=== PATIENT | female | born 1985 | race American Indian/Alaskan Native ===

== ENCOUNTER 2016-12-28 14:06 | Emergency (ER) | payer OTHER ==
[~2016-12-28] VITALS: Ht 165.1 cm; Wt 52.2 kg
[~2016-12-28 14:06] MED LIST: ACID CONTROL20 MG PO; ACYCLOVIR 200200 MG PO; ALEVE220 MG PO; AMOXICILLIN 50500 M1 PO; APAP/CODEINE ELI5 M1 OR; ATIVAN0.5 MG PO; ATIVAN1 MG PO; AUGMENTIN 875875 MG PO; BACTRIM DS TAB1 EACH PO; CELEXA20 MG PO; CREON 10 CAPSUL1 CA1 PO; FEVERALL650 MG RC; FLOXIN OTI0.3 %/5 M1 OT; HYDROCODONE-AP1 EAC6 PO; IBUPROFEN 400400 M1 PO; IBUPROFEN 600600 M1 PO; IRON325 PO; KEFLEX500 MG PO; KEPPRA 500 MG500 M1 PO; MAGNESIUM OXID400 MG PO; MAGOX 400400 MG PO; NOHOMEMEDICATIONS; NORCO 5-325 TA1 EACH PO; ONDANSETRON HCL4 M2 PO; PEPCID20 MG PO; PERCOCET 5-3251 EACH PO; POTASSIUM20 PO; PROZAC20 MG PO; SEROQUEL 12.512.5 MG PO; TOPROL XL25 MG PO; TRAMADOL 50 MG50 MG PO; TRINATE TABLET1 TAB PO; TYLENOL325 MG PO; VISTARIL 25 MG25 M1 PO; VITAMIN B-1100 M1 PO
[2016-12-28] MEDS ORDERED: MOBIC15 MG PO (15:56)
[2016-12-28] MEDS ORDERED: CORTISPORIN OTI10 ML OTIC (15:56)
== END 2016-12-28 16:28 | disposition home or self-care (01) ==
LOC: ER 14:06
DX: H66.92 Otitis media, unspecified, left ear (principal); F10.10 Alcohol abuse, uncomplicated

== ENCOUNTER 2017-11-11 16:39 | Emergency (ER) | payer OTHER ==
[~2017-11-11] VITALS: Ht 165.1 cm; Wt 49.9 kg
[~2017-11-11 16:39] MED LIST changes: +CORTISPORIN OTI10 ML OTIC; +MOBIC15 MG PO
[2017-11-11] MEDS ORDERED: IBUPROFEN 600600 M1 PO (18:48)
[2017-11-11] MEDS ORDERED: NORCO 5-325 TA1 EACH PO (18:48)
[2017-11-11 18:59] VITALS: BP 121/81
== END 2017-11-11 19:00 | disposition home or self-care (01) ==
LOC: ER 16:39
DX: S52.512A Displaced fracture of left radial styloid process, initial encounter for closed fracture (principal); X58.XXXA Exposure to other specified factors, initial encounter; Y93.89 Activity, other specified; Y92.89 Other specified places as the place of occurrence of the external cause; Y99.8 Other external cause status

== ENCOUNTER 2019-01-30 05:29 | Emergency (ER) | payer OTHER ==
[~2019-01-30] VITALS: Ht 160 cm; Wt 54.4 kg
[2019-01-30 05:50] LABS: URINE BILIRUBIN NEGATIVE (Negative); URINE BLOOD 1+ (Negative); URINE CLARITY CLEAR; URINE COLOR YELLOW; URINE GLUCOSE-RANDOM* NEGATIVE (Negative); URINE KETONES 1+ (Negative); URINE NITRITE-REFLEX NEGATIVE (Negative); URINE PROTEIN (DIPSTICK) 1+ (Negative)
[2019-01-30 05:53] LABS: URINE LEUKOCYTES-REFLEX 2+ (Negative)
[2019-01-30 05:59] LABS: AMP/METHAMP Negative (Negative); BARBITURATES Negative (Negative); BENZODIAZEPINES Negative (Negative); COCAINE POSITIVE (Negative); METHADONE Negative (Negative); OPIATES Negative (Negative); PCP Negative (Negative)
[2019-01-30 06:03] LABS: CASTS None Seen /LPF (None Seen); MUCUS 0-3 Light strn/LPF (None Seen); SQUAMOUS 0-3 Few /LPF (0-3); URINE WBC-REFLEX >25 Many /HPF (0-5)
[2019-01-30 06:04] LABS: BACTERIA-REFLEX >30 Many /HPF (None Seen); CRYSTALS None Seen /LPF (None Seen); URINE RBC >20 Many /HPF (0-2)
[2019-01-30 06:14] LABS: ABSOLUTE NEUTROPHILS 4.2 thou/uL (1.4-8.2); BASOPHILS 0.8 % (0.0-2.0); EOSINOPHILS 0.6 % (0.0-3.0); HEMATOCRIT 35.8 % (37.0-47.0); LYMPHOCYTES 23.1 % (24.0-44.0); MCH 27.9 pg (26.0-34.0); MCHC 33.5 g/dL (28.0-37.0); MCV 83.1 fL (80.0-100.0); PLATELET COUNT 266 thou/uL (150-400); POLYS 66.5 % (36.0-66.0); RDW 16.6 % (10.5-14.5); WBC 6.2 thou/uL (4.0-11.0)
[2019-01-30] MEDS ORDERED: NOHOMEMEDICATIONS (06:25)
[2019-01-30 06:30] LABS: CALCIUM 8.9 mg/dL (8.5-10.1); CREATININE 0.8 mg/dL (0.6-1.0)
[2019-01-30 06:36] LABS: ALBUMIN 3.8 g/dL (3.4-5.0); TOTAL BILIRUBIN 0.5 mg/dL (<0.1-1.0); TOTAL PROTEIN 7.2 g/dL (6.4-8.2)
[2019-01-30] MEDS ORDERED: PHENERGAN 25 MG25 M1 PO (08:35)
[2019-01-30] MEDS ORDERED: KEFLEX500 M1 PO (08:35)
[2019-01-30] MEDS ORDERED: ZOFRAN ODT4 MG PO (08:35)
[2019-01-30 09:01] VITALS: BP 116/58
--- NOTE | 2019-01-30 16:12 | EKG ---
[place] [address] [facility] [place] [address] ELECTROCARDIOGRAM REPORT Name: ALMA ISBELL [id number] ������������������ Admission: 01/30/19 ������������������ Attend Phys: Discharge: 01/30/19 ������������������ Date of : 87 Report #: [id number] ����������������������������������������������������������������� [id number] THIS REPORT FOR: //name// [facility] ED Test Date: 2019-01-30 Test Time: 08:27:09 Pat Name: ALMA ISBELL Department: Room: Gender: F Visual Design Lead: : 1985 Requested By: Garrett Flynn Order Number: [id number] MD: Robert Alvares Measurements Intervals [place] Rate: 82 P: 38 MO: 123 QRS: 66 QRSD: 96 T: 61 QT: 424 QTc: 496 Interpretive Statements Sinus rhythm Multiple premature complexes, vent & supraven Prolonged QT interval Compared to ECG 04/06/2015 10:18:35 Prolonged QT interval now present Sinus tachycardia no longer present Electronically Signed On 01-30-2019 16:12:26 CDT by Robert Alvares [email or web address] ��������������������������������������������� <ELECTRONICALLY SIGNED> ���������������������������������������� By: Robert Alvares MD, [facility] ��������������������������������������������� 01/30/19 1612 08 6 Robert Alvares MD, [facility] /EPI
== END 2019-01-30 09:05 | disposition home or self-care (01) ==
LOC: ER 05:29
PROVIDERS: Emergency Medicine
DX: F10.10 Alcohol abuse, uncomplicated (principal); N39.0 Urinary tract infection, site not specified; R11.2 Nausea with vomiting, unspecified; Z98.51 Tubal ligation status; Y90.6 Blood alcohol level of 120-199 mg/100 ml

== ENCOUNTER 2019-02-20 06:28 | Emergency (ER) | payer OTHER ==
[~2019-02-20] VITALS: Ht 165.1 cm; Wt 54.4 kg
[~2019-02-20 06:28] MED LIST changes: +KEFLEX500 M1 PO; +PHENERGAN 25 MG25 M1 PO; +ZOFRAN ODT4 MG PO
[2019-02-20] MEDS ORDERED: MOBIC15 MG PO (08:05)
[2019-02-20 08:12] VITALS: BP 130/88
== END 2019-02-20 08:12 | disposition home or self-care (01) ==
LOC: ER 06:28
DX: S05.12XA Contusion of eyeball and orbital tissues, left eye, initial encounter (principal); R42 Dizziness and giddiness; Y04.2XXA Assault by strike against or bumped into by another person, initial encounter; Y92.89 Other specified places as the place of occurrence of the external cause; Y93.89 Activity, other specified; Y99.8 Other external cause status

== ENCOUNTER 2020-01-26 11:53 | Emergency (ER) | payer OTHER ==
[~2020-01-26] VITALS: Ht 167.6 cm; Wt 54.4 kg
[~2020-01-26 11:53] MED LIST changes: +PROTONIX40 M1 PO
[2020-01-26 12:42] LABS: ABSOLUTE NEUTROPHILS 5.8 thou/uL (1.4-8.2); BASOPHILS 0.5 % (0.0-2.0); EOSINOPHILS 9.2 % (0.0-3.0); HEMATOCRIT 36.8 % (37.0-47.0); HEMOGLOBIN 12.2 gm/dL (12.0-15.0); LYMPHOCYTES 14.4 % (24.0-44.0); MCH 28.7 pg (26.0-34.0); MCHC 33.2 g/dL (28.0-37.0); MCV 86.6 fL (80.0-100.0); MONOCYTES 3.5 % (1.0-8.0); PLATELET COUNT 280 thou/uL (150-400); POLYS 72.4 % (36.0-66.0); RBC 4.25 mil/uL (4.20-5.00); RDW 16.3 % (10.5-14.5); WBC 8.1 thou/uL (4.0-11.0)
[2020-01-26 12:49] LABS: CALCIUM 8.5 mg/dL (8.5-10.1); POTASSIUM 3.5 mmol/L (3.5-5.1)
[2020-01-26 12:55] LABS: TOTAL BILIRUBIN 0.4 mg/dL (0.2-1.0); TOTAL PROTEIN 7.4 g/dL (6.4-8.2)
[2020-01-26 13:44] LABS: URINE BILIRUBIN NEGATIVE (Negative); URINE BLOOD TRACE (Negative); URINE CLARITY CLEAR; URINE COLOR YELLOW; URINE GLUCOSE-RANDOM* NEGATIVE (Negative); URINE KETONES 1+ (Negative); URINE LEUKOCYTES-REFLEX NEGATIVE (Negative); URINE NITRITE-REFLEX NEGATIVE (Negative); URINE PROTEIN (DIPSTICK) TRACE (Negative); URINE SPECIFIC GRAVITY 1.025 (1.005-1.035); URINE UROBILINOGEN 0.2 E.U./dl (0.2-1.0)
[2020-01-26] MEDS ORDERED: ZOFRAN ODT4 MG PO (14:04)
[2020-01-26 14:22] VITALS: BP 113/69
== END 2020-01-26 14:22 | disposition home or self-care (01) ==
LOC: ER 11:53
PROVIDERS: Nurse Practitioner Family
DX: R11.2 Nausea with vomiting, unspecified (principal)

== ENCOUNTER 2021-01-30 17:32 | Emergency (ER) | payer OTHER ==
[~2021-01-30] VITALS: Ht 165.1 cm; Wt 59.0 kg
[~2021-01-30 17:32] MED LIST changes: +CARAFATE 11 GM/10 M1 PO; +FOLIC ACID1 MG PO; +PROTONIX40 M2 PO; +VITAMIN B-1100 M2 PO; +ZOFRAN 4 MG ORAL4 MG PO
[2021-01-30 20:10] LABS: HEMATOCRIT 31.3 % (37.0-47.0); HEMOGLOBIN 9.6 gm/dL (12.0-15.0); MCH 22.3 pg (26.0-34.0); MCHC 30.8 g/dL (28.0-37.0); MCV 72.5 fL (80.0-100.0); PLATELET COUNT 861 thou/uL (150-400); RBC 4.32 mil/uL (4.20-5.00); RDW 25.5 % (10.5-14.5)
[2021-01-30 20:31] LABS: ALBUMIN 2.9 g/dL (3.4-5.0); CALCIUM 8.7 mg/dL (8.5-10.1); CREATININE 1.1 mg/dL (0.6-1.0); TOTAL BILIRUBIN 0.7 mg/dL (0.2-1.0); TOTAL PROTEIN 8.2 g/dL (6.4-8.2)
[2021-01-30 20:33] LABS: POTASSIUM 2.7 mmol/L (3.5-5.1)
[2021-01-30 21:28] LABS: ABSOLUTE NEUTROPHILS 8.2 thou/uL (1.4-8.2)
[2021-01-30 21:29] LABS: ANISOCYTOSIS 3+; HYPOCHROMASIA 2+; LARGE PLATELETS FEW; MICROCYTES 1+; PLATELET ESTIMATE MARKEDLY INCREASED; POIKILOCYTOSIS 1+
[2021-01-30] MEDS ORDERED: ZOFRAN ODT4 MG PO (22:56)
[2021-01-31 00:55] VITALS: BP 133/80
== END 2021-01-31 01:00 | disposition home or self-care (01) ==
LOC: ER 17:32
PROVIDERS: Physician Assistant
DX: E87.6 Hypokalemia (principal); R11.2 Nausea with vomiting, unspecified; F10.10 Alcohol abuse, uncomplicated; R10.31 Right lower quadrant pain; Z98.51 Tubal ligation status

== ENCOUNTER 2021-05-22 18:29 | Inpatient (IN) | payer OTHER ==
[~2021-05-22] VITALS: Ht 165.1 cm; Wt 48.7 kg
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
[2021-05-22 18:29] VITALS: BP 135/93
[2021-05-22 19:02] LABS: BASOPHILS 0.8 % (0.0-2.0); EOSINOPHILS 0.9 % (0.0-3.0); HEMATOCRIT 31.6 % (37.0-47.0); HEMOGLOBIN 9.6 gm/dL (12.0-15.0); LYMPHOCYTES 6.3 % (24.0-44.0); MCH 21.2 pg (26.0-34.0); MCHC 30.5 g/dL (28.0-37.0); MCV 69.5 fL (80.0-100.0); MONOCYTES 5.1 % (1.0-8.0); PLATELET COUNT 317 thou/uL (150-400); POLYS 86.9 % (36.0-66.0); RBC 4.55 mil/uL (4.20-5.00); RDW 22.4 % (10.5-14.5); WBC 10.3 thou/uL (4.0-11.0)
[2021-05-22 19:25] LABS: ALBUMIN 3.9 g/dL (3.4-5.0); CALCIUM 8.2 mg/dL (8.5-10.1); TOTAL BILIRUBIN 0.6 mg/dL (0.2-1.0); TOTAL PROTEIN 7.7 g/dL (6.4-8.2)
[2021-05-22 19:57] LABS: ANISOCYTOSIS 3+; MACROCYTES 1+; MICROCYTES 2+
[2021-05-22 19:58] LABS: HYPOCHROMASIA 2+
[2021-05-22] MEDS ORDERED: HYDROXYZINE HCL25 M2 PO (22:27)
[2021-05-22] MEDS ORDERED: CARAFATE 1 GM TA1 GM PO (22:28)
[2021-05-22] MEDS ORDERED: PROTONIX40 M2 PO (22:28)
[2021-05-22] MEDS ORDERED: VITAMIN B-1100 M2 PO (22:28)
[2021-05-22] MEDS ORDERED: FOLIC ACID1 MG PO (22:28)
[2021-05-22 23:43] LABS: URINE BILIRUBIN NEGATIVE (Negative); URINE BLOOD 2+ (Negative); URINE CLARITY CLEAR; URINE COLOR YELLOW; URINE GLUCOSE-RANDOM* NEGATIVE (Negative); URINE KETONES 1+ (Negative); URINE LEUKOCYTES-REFLEX NEGATIVE (Negative); URINE NITRITE-REFLEX NEGATIVE (Negative); URINE PROTEIN (DIPSTICK) 1+ (Negative); URINE SPECIFIC GRAVITY <= 1.005 (1.005-1.035); URINE UROBILINOGEN 0.2 E.U./dl (0.2-1.0)
[2021-05-22 23:45] VITALS: BP 127/80; BP 131/86
[2021-05-23 00:44] LABS: CASTS None Seen /LPF (None Seen); MUCUS None Seen strn/LPF (None Seen); SQUAMOUS 0-3 Few /LPF (0-3); URINE WBC-REFLEX 0-5 Rare /HPF (0-5)
[2021-05-23 00:45] LABS: BACTERIA-REFLEX None Seen /HPF (None Seen); CRYSTALS None Seen /LPF (None Seen); URINE RBC 1-2 Rare /HPF (NONE SEEN)
[2021-05-23 04:01] VITALS: BP 127/80
--- NOTE | 2021-05-23 04:38 | NUR ---
ADMIT PT ADMITTED TO ROOM 362 FROM ED WITH ETOH WITHDRAWAL. CIWA SCORES SCORING 16 2 MG ATIVAN GIVEN IVP X2 FOR SCORE OF 16, PT HAS TREMORS SLIGHT SWEATING AND TACTILE DISTURBANCE OF HER HEAD. RELAXES AFTER DOSES. VSS HEART RATE STILL TACHY BUT IN LOW 100'S. IVF'S INFUSING ORDERED. ADMISSION ASSESSMENT AND HISTORY COMPLETED. TELE INTACT READING ST CONTINUE POC.
--- NOTE | 2021-05-23 05:07 | NUR ---
ADMIT PT ADMITTED TO ROOM 362 FROM ED WITH ETOH WITHDRAWAL. CIWA SCORES 15 TO 16 PT IS TREMBLING, HAS TACTILE ITCHING OF HEAD,NAUSEA WITHOUT VOMITING SLIGHT PERSPIRATION AND IS VERY ANXIOUS. 2 MG ATIVAN GIVEN Q 2 TO 4 HRS WITH EFFECT PT RESTS AFTER. IVF'S INFUSING ORDERED. CONTINUE TO MONITOR.
[2021-05-23 07:28] VITALS: BP 122/85
--- NOTE | 2021-05-23 07:56 | EKG ---
[place] [address] [facility] [place] [address] ELECTROCARDIOGRAM REPORT Name: ALMA ISBELL Room #: 362-P ADM IN M.R.#: [id number] Admission: 05/22/21 Attend Phys: Severiano Juarez MD Discharge: Date of : [birth year] Report #: [id number] [facility] ED Test Date: 2021-05-22 Test Time: 18:29:07 Pat Name: ALMA ISBELL Department: Room: 362 Gender: F Lmft: GERARDO : 1985 Requested By: Taj Dinh Order Number: [id number] MD: Robert Alvares Measurements Intervals [place] Rate: 138 P: 79 IN: 85 QRS: 96 QRSD: 95 T: -58 QT: 363 QTc: 550 Interpretive Statements Sinus tachycardia Borderline right axis deviation RSR' in V1 or V2, probably normal variant Prolonged QT interval Artifact in lead(s) I,II,III,aVR,aVL,aVF,V6 Compared to ECG 07/04/2020 20:37:14 Heart rate has increased QT interval has lengthened Electronically Signed On 05-23-2021 7:56:44 CDT by Robert Alvares [email or web address] <ELECTRONICALLY SIGNED> By: Robert Alvares MD, [facility] 05/23/21 0756 182 182 Robert Alvares MD, [facility] /EPI
--- NOTE | 2021-05-23 07:57 | EKG ---
[address] [place] [address] ELECTROCARDIOGRAM REPORT Name: ALMA ISBELL Room #: 362-P ADM IN M.R.#: [id number] Admission: 05/22/21 Attend Phys: Severiano Juarez MD Discharge: Date of : [birth year] Report #: [id number] [facility] ED Test Date: 2021-05-22 Test Time: 19:18:15 Pat Name: ALMA ISBELL Department: Room: 362 Gender: F Heddler: GERARDO : 1985 Requested By: Taj Dinh Order Number: [id number] MD: Robert Alvares Measurements Intervals [place] Rate: 116 P: 70 VA: 115 QRS: 75 QRSD: 80 T: 37 QT: 261 QTc: 363 Interpretive Statements Sinus tachycardia Ventricular premature complex Borderline T wave abnormalities Compared to ECG 05/22/2021 18:29:07 Ventricular premature complex(es) now present T-wave abnormality now present Prolonged QT interval no longer present Electronically Signed On 05-23-2021 7:57:07 CDT by Robert Alvares [email or web address] <ELECTRONICALLY SIGNED> By: Robert Alvares MD, [facility] 05/23/21 0757 17 17 Robert Alvares MD, [facility] /EPI
[2021-05-23 08:27] LABS: HEMATOCRIT 26.6 % (37.0-47.0); HEMOGLOBIN 8.3 gm/dL (12.0-15.0); MCH 21.7 pg (26.0-34.0); MCHC 31.2 g/dL (28.0-37.0); MCV 69.6 fL (80.0-100.0); RBC 3.82 mil/uL (4.20-5.00); RDW 22.7 % (10.5-14.5); WBC 7.7 thou/uL (4.0-11.0)
[2021-05-23 09:09] LABS: CALCIUM 7.8 mg/dL (8.5-10.1); CREATININE 0.8 mg/dL (0.6-1.0)
[2021-05-23 09:12] LABS: POTASSIUM 2.9 mmol/L (3.5-5.1)
--- NOTE | 2021-05-23 09:26 | NUR ---
Nutrition: pt admitted with ETOH withdrawal and seen due to low BMI of 17.9. Noted weight 145# day prior. RD re-weighed pt at 132# so actual BMI is WNL. Pt reports stable weights and fair/normal appetite. Tolerated 50% of breakfast. CIWA protocol. Able to order meals. Low nutrition risk at this time.
[2021-05-23 11:18] VITALS: BP 120/79
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
[2021-05-23 15:28] VITALS: BP 125/90
[2021-05-23 19:31] VITALS: BP 121/75
[2021-05-24 03:35] VITALS: BP 108/74
[2021-05-24 06:05] LABS: CALCIUM 7.8 mg/dL (8.5-10.1); CREATININE 0.9 mg/dL (0.6-1.0); MAGNESIUM 1.5 mg/dL (1.8-2.4); PHOSPHORUS 1.8 mg/dL (2.5-4.9); POTASSIUM 3.4 mmol/L (3.5-5.1)
--- NOTE | 2021-05-24 06:47 | NUR ---
POC WITH CIWA ON Q4. PT REMOVED IV ACCESS IN RIGHT HAND. NEW ACCESS ESTABLISHED IN LEFT HAND. VSS.
[2021-05-24 07:46] VITALS: BP 121/73
[2021-05-24 11:14] VITALS: BP 100/65
[2021-05-24 13:14] LABS: AMP/METHAMP Negative (Negative); BARBITURATES Negative (Negative); BENZODIAZEPINES Negative (Negative); COCAINE POSITIVE (Negative); METHADONE Negative (Negative); OPIATES Negative (Negative); PCP Negative (Negative)
[2021-05-24 16:26] VITALS: BP 107/69
--- NOTE | 2021-05-24 16:58 | NUR ---
RESUMED CARE THIS AM. PT ALERT AND ORIENTED X 4. 1600 CIWA 9. PT AMBULATES TO BATHROOM INDEPENDENTLY. PT NSR BUT ST WHEN AMBULATING. SPOKE WITH PT ABOUT SUBSTANCE ABUSE AND REHAB OPTIONS AND PT STATED SHE WAS READY TO GET SOBER AND WANTED TO GO TO A REHAB FACILITY AFTER DETOX. GAVE PT INFORMATION ABOUT REHAB FACILITY AND THERAPY OPTIONS. SPOKE WITH SOCIAL WORK ABOUT OPTIONS I HAD SPOKE WITH PT ABOUT. AT BEDSIDE THIS AFTERNOON. PT COMPLAINS OF BACK PAIN WITH LITTLE RELIEF FROM ACETAMINOPHEN GIVEN. PT FREQUENTLY ANXIOUS AND STATED THIS MORNING "MAYBE I SHOULD LEAVE". PT HAS MODERATE RELIEF FROM ANXIETY WITH LORAZEPAM. PT DENIES ANY CURRENT NEEDS. WILL CONTINUE TO MONITOR.
[2021-05-24 19:26] VITALS: BP 139/69
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
== END 2021-05-24 19:45 | disposition left against medical advice (07) | DRG 432 ==
LOC: ER 18:29 → EROBS 21:32 → 3W 23:39
PROVIDERS: Emergency Medicine; Nurse Practitioner Family; ADMIT Internal Medicine; ATTEND Internal Medicine
DX: K70.10 Alcoholic hepatitis without ascites (principal); G93.41 Metabolic encephalopathy; F10.239 Alcohol dependence with withdrawal, unspecified; R25.1 Tremor, unspecified; E88.89 Other specified metabolic disorders; F32.9 Major depressive disorder, single episode, unspecified; E87.6 Hypokalemia; F14.10 Cocaine abuse, uncomplicated; F12.10 Cannabis abuse, uncomplicated; F10.229 Alcohol dependence with intoxication, unspecified; F41.1 Generalized anxiety disorder; E83.42 Hypomagnesemia; N28.1 Cyst of kidney, acquired; Z53.29 Procedure and treatment not carried out because of patient's decision for other reasons; Z20.822 Contact with and (suspected) exposure to COVID-19; E83.51 Hypocalcemia; E83.39 Other disorders of phosphorus metabolism; K76.0 Fatty (change of) liver, not elsewhere classified; Z91.19 Patient's noncompliance with other medical treatment and regimen; Z71.41 Alcohol abuse counseling and surveillance of alcoholic; Z71.51 Drug abuse counseling and surveillance of drug abuser; Z87.81 Personal history of (healed) traumatic fracture
CPT/HCPCS: 10879

== ENCOUNTER 2021-05-26 15:16 | Inpatient (IN) | payer OTHER ==
[~2021-05-26] VITALS: Ht 170.2 cm; Wt 54.4 kg
[~2021-05-26 15:16] MED LIST changes: +CARAFATE 1 GM TA1 GM PO; +HYDROXYZINE HCL25 M2 PO
[2021-05-26 15:17] VITALS: BP 125/82
[2021-05-26] MEDS ORDERED: NAPROSYN500 M1 PO (15:40)
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
--- NOTE | 2021-05-26 16:16 | EKG ---
[place] [address] [facility] [place] [address] ELECTROCARDIOGRAM REPORT Name: ALMA ISBELL Room #: REG TANVI Sims#: [id number] Admission: 05/26/21 Attend Phys: Discharge: Date of : [birth year] Report #: [id number] [facility] ED Test Date: 2021-05-26 Test Time: 15:20:37 Pat Name: ALMA ISBELL Department: Room: Gender: F Molecular Modeler: GENE : 1985 Requested By: Keesha Bowen Order Number: [id number] MD: Robert Alvares Measurements Intervals [place] Rate: 112 P: 70 IN: 100 QRS: 74 QRSD: 81 T: 42 QT: 333 QTc: 455 Interpretive Statements Sinus tachycardia Borderline T wave abnormalities Compared to ECG 05/22/2021 19:18:15 Premature ventricular complexes no longer present Electronically Signed On 05-26-2021 16:15:54 CDT by Robert Alvares [email or web address] <ELECTRONICALLY SIGNED> By: Robert Alvares MD, [facility] 05/26/21 1615 1520 1520 Robert Alvares MD, [facility] /EPI
[2021-05-26 16:45] LABS: HEMATOCRIT 30.7 % (37.0-47.0); HEMOGLOBIN 9.5 gm/dL (12.0-15.0); MCH 22.2 pg (26.0-34.0); MCHC 31.1 g/dL (28.0-37.0); MCV 71.3 fL (80.0-100.0); PLATELET COUNT 214 thou/uL (150-400); RDW 22.8 % (10.5-14.5)
[2021-05-26 16:51] LABS: CREATININE 0.9 mg/dL (0.6-1.0); POTASSIUM 3.6 mmol/L (3.5-5.1)
[2021-05-26 16:54] LABS: MAGNESIUM 1.7 mg/dL (1.8-2.4); PHOSPHORUS 3.3 mg/dL (2.6-4.7)
[2021-05-26 17:01] LABS: ALBUMIN 3.5 g/dL (3.4-5.0); TOTAL BILIRUBIN 0.3 mg/dL (0.2-1.0); TOTAL PROTEIN 7.4 g/dL (6.4-8.2)
[2021-05-26 17:03] LABS: URINE BILIRUBIN NEGATIVE (Negative); URINE BLOOD 1+ (Negative); URINE CLARITY CLEAR; URINE COLOR YELLOW; URINE GLUCOSE-RANDOM* NEGATIVE (Negative); URINE KETONES NEGATIVE (Negative); URINE LEUKOCYTES-REFLEX NEGATIVE (Negative); URINE NITRITE-REFLEX NEGATIVE (Negative); URINE PROTEIN (DIPSTICK) 1+ (Negative); URINE SPECIFIC GRAVITY <= 1.005 (1.005-1.035); URINE UROBILINOGEN 0.2 E.U./dl (0.2-1.0)
[2021-05-26 17:11] LABS: BACTERIA-REFLEX 1-9 Few /HPF (None Seen); CASTS None Seen /LPF (None Seen); CRYSTALS None Seen /LPF (None Seen); SQUAMOUS 0-3 Few /LPF (0-3); URINE RBC 1-2 Rare /HPF (NONE SEEN); URINE WBC-REFLEX 0-5 Rare /HPF (0-5)
[2021-05-26 17:12] LABS: AMP/METHAMP Negative (Negative); BARBITURATES Negative (Negative); BENZODIAZEPINES Negative (Negative); COCAINE POSITIVE (Negative); METHADONE Negative (Negative); OPIATES Negative (Negative); PCP Negative (Negative)
[2021-05-26 17:38] LABS: ANISOCYTOSIS 1+; HYPOCHROMASIA 1+; MICROCYTES 1+
[2021-05-26 20:21] VITALS: BP 131/83
[2021-05-26 21:01] VITALS: BP 122/86
[2021-05-27 04:20] LABS: CALCIUM 7.6 mg/dL (8.5-10.1); CREATININE 0.9 mg/dL (0.6-1.0); POTASSIUM 3.4 mmol/L (3.5-5.1)
[2021-05-27 04:27] VITALS: BP 131/81
[2021-05-27 04:31] LABS: HEMATOCRIT 25.4 % (37.0-47.0); HEMOGLOBIN 7.9 gm/dL (12.0-15.0); MCH 22.3 pg (26.0-34.0); MCHC 31.2 g/dL (28.0-37.0); MCV 71.3 fL (80.0-100.0); RBC 3.56 mil/uL (4.20-5.00); RDW 22.9 % (10.5-14.5); WBC 6.1 thou/uL (4.0-11.0)
--- NOTE | 2021-05-27 05:52 | NUR ---
PT HAS PREVIOUS ADMISSIONS FOR ETOH. ADMISSION COMPLETED, CAREPLAN IN PLACE, AND INTERVENTIONS SET. ATTEMPTING TO CALL [facility], BUT EACH AGENCY THAT SHOULD SERVICE [facility] THEY DEFER TO ANOTHER AGENCY. MELVA SAID TO CALL AGENCY ON [place] "[facility]", THEY STATE THEY ONLY SERVICE [facility]. WILL FURTHER INVESTIGATE SITUATION.
[2021-05-27 07:30] VITALS: BP 120/72
[2021-05-27 08:53] LABS: % SATURATION 6 % (20-39); IRON 21 ug/dL (50-170); TIBC 343 ug/dL (250-450)
[2021-05-27 11:31] VITALS: BP 114/68
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
[2021-05-27 15:34] VITALS: BP 112/79
[2021-05-27 19:42] VITALS: BP 121/80
--- NOTE | 2021-05-28 03:19 | NUR ---
needs encouraging that she is doing well with controlling her anxiety. she has been given the lorazepam q2 hours as needed for her withdraw sypmtoms. she is using tv shows as a distraction. she asked for benedryl for insomnia. she is wanting to rest. gave 2 5 mg po per order.
[2021-05-28 04:30] LABS: HEMATOCRIT 22.6 % (37.0-47.0); HEMOGLOBIN 7.2 gm/dL (12.0-15.0); MCH 22.8 pg (26.0-34.0); MCHC 31.9 g/dL (28.0-37.0); MCV 71.5 fL (80.0-100.0); RBC 3.17 mil/uL (4.20-5.00); RDW 22.7 % (10.5-14.5); WBC 4.6 thou/uL (4.0-11.0)
[2021-05-28 04:57] LABS: ALBUMIN 2.8 g/dL (3.4-5.0); CALCIUM 7.4 mg/dL (8.5-10.1); CREATININE 0.8 mg/dL (0.6-1.0); MAGNESIUM 1.6 mg/dL (1.8-2.4); POTASSIUM 3.2 mmol/L (3.5-5.1); TOTAL BILIRUBIN 0.4 mg/dL (0.2-1.0); TOTAL PROTEIN 5.6 g/dL (6.4-8.2)
[2021-05-28 04:59] VITALS: BP 117/71
--- NOTE | 2021-05-28 06:02 | NUR ---
pt is calm this am. she is able to rest with eyes closed. she stated that she is feeling calm
--- NOTE | 2021-05-28 06:23 | NUR ---
pt wanting to rest without having the iv line in the way, she requested to turn it off
[2021-05-28 07:24] VITALS: BP 142/89
[2021-05-28 11:28] VITALS: BP 125/68
[2021-05-28 19:11] VITALS: BP 111/54
[2021-05-29 02:32] VITALS: BP 138/95
[2021-05-29 05:27] LABS: HEMATOCRIT 25.7 % (37.0-47.0); HEMOGLOBIN 7.9 gm/dL (12.0-15.0); MCHC 30.6 g/dL (28.0-37.0); MCV 71.9 fL (80.0-100.0); RBC 3.58 mil/uL (4.20-5.00); RDW 24.4 % (10.5-14.5); WBC 3.6 thou/uL (4.0-11.0)
[2021-05-29 05:35] LABS: CREATININE 0.8 mg/dL (0.6-1.0); MAGNESIUM 1.8 mg/dL (1.8-2.4); POTASSIUM 3.2 mmol/L (3.5-5.1)
--- NOTE | 2021-05-29 06:26 | NUR ---
Q4 CIWA RUNNING 11. PT REQUEST PAIN MEDICATION X3, BENDADRYL X1, AND ATIVAN. AM LAB SHOW K+ 3.2, CALLED [employer] RINK ATTENDANT AND RECEIVED ORDERS FOR X1 20MG K+. PT CAN USE CALL LIGHT.
[2021-05-29 07:54] VITALS: BP 116/79
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
[2021-05-29 11:01] VITALS: BP 116/79
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
[2021-05-29] MEDS ORDERED: FERREX 150 PLU1 EAC1 PO (15:46)
[2021-05-29 16:20] VITALS: BP 93/63
--- NOTE | 2021-05-29 18:41 | NUR ---
ASSUMED PATIENT CARE AT 0700. A/O X4. CIW X5. AMBULATED IN ROOM. PROGRESSING TOWARDS POC LYDIA.
[2021-05-29 20:47] VITALS: BP 116/72
[2021-05-30 03:48] VITALS: BP 126/85
--- NOTE | 2021-05-30 04:37 | NUR ---
PT ALERT AND ORIENTED X 4. SHE WAS ABLE TO SLEEP FOR 2HRS DURING THE NIGHT. SHE STATED THAT SHE IS USING TV SHOWS A DISTRACTION FROM ANXIETY. [facility] HAS BEEN RUNNING AT 4-6. PT C/O OF PAIN ON NOSE AND GENERALIZED LEFT SIDE. NURSE ADDRESSED CONCERNS AND ADMINISTERED PAIN MEDICATIONS. WILL CONTINUE TO MONITOR.
[2021-05-30 07:33] VITALS: BP 110/68
[2021-05-30] MEDS ORDERED: HYDROCODON-ACE1 EAC7 PO (09:46)
--- NOTE | 2021-05-30 10:28 | NUR ---
ASSUMED PATIENT CARE AT 0700. A/0 X4. CIW X2. AMBULATED IN ROOM. PATIENT TOLD RN WILL BUY A TRAIN TICKET FOR HER TO GO SISTER HOME. DC NOW.
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
== END 2021-05-30 10:32 | disposition home or self-care (01) | DRG 552 ==
LOC: ER 15:16 → EROBS 19:08 → 3W 20:31
PROVIDERS: Hospitalist; Nurse Practitioner Family; ADMIT Hospitalist; ATTEND Hospitalist
DX: S32.028A Other fracture of second lumbar vertebra, initial encounter for closed fracture (principal); F10.139 Alcohol abuse with withdrawal, unspecified; F32.A Depression, unspecified; F10.129 Alcohol abuse with intoxication, unspecified; S02.2XXA Fracture of nasal bones, initial encounter for closed fracture; Y90.6 Blood alcohol level of 120-199 mg/100 ml; F41.9 Anxiety disorder, unspecified; F43.21 Adjustment disorder with depressed mood; W17.89XA Other fall from one level to another, initial encounter; K64.9 Unspecified hemorrhoids; F14.10 Cocaine abuse, uncomplicated; F12.10 Cannabis abuse, uncomplicated; K76.0 Fatty (change of) liver, not elsewhere classified; Z20.822 Contact with and (suspected) exposure to COVID-19; Y93.89 Activity, other specified; Y92.89 Other specified places as the place of occurrence of the external cause; Y99.8 Other external cause status; Z71.41 Alcohol abuse counseling and surveillance of alcoholic; Z71.51 Drug abuse counseling and surveillance of drug abuser; Z28.21 Immunization not carried out because of patient refusal
CPT/HCPCS: 10879